=== PATIENT | male | born 1970 | race Caucasian/White ===

== ENCOUNTER 2025-10-25 16:44 | Inpatient (IN) | payer OTHER, SELFPAY ==
[2025-10-25] VITALS (14 sets, daily range): BP systolic 101–184; BP diastolic 70–123; BMI 28.2
[2025-10-25 14:32] LABS: Hematocrit 48.6 % (39.0-52.0); Hemoglobin 17.1 g/dL (13.0-18.0); Mean Corp Hgb Conc. 35.2 g/dL (33.0-37.0); Mean Corpuscular Volume 99.4 fL (80.0-94.0); Nucleated Red Blood Cells % 0 % (-); Platelet Count 256 10^3/uL (130-400); Red Cell Dist. Width 13.2 % (11.5-14.5)
[2025-10-25 14:41] LABS: INR 0.95; PT 12.8 Sec (11.4-14.6)
[2025-10-25 14:42] LABS: APTT 28.7 Sec (23.4-35.0)
[2025-10-25 14:47] LABS: ALT (SGPT) 22 U/L (0-50); AST (SGOT) 33 U/L (17-59); Albumin 4.9 g/dl (3.5-5.0); Alkaline Phosphatase 108 U/L (38-126); Blood Urea Nitrogen 21 mg/dl (9-20); Calcium 9.9 mg/dl (8.4-10.2); Carbon Dioxide 20 mmol/L (22-30); Chloride 102 mmol/L (98-107); Estimated Creatinine Clearance 75 ml/min; Glucose 108 mg/dl (70-99); Potassium 4.0 mmol/L (3.5-5.1); Sodium 136 mmol/L (135-145); Total Protein 8.1 g/dl (6.3-8.2); eGFR > 60.00
--- NOTE | 2025-10-25 14:49 | ED.GENMED ---
History of Present Illness
General
Chief Complaint: Back Pain
Time Seen by Provider: 10/25/25 14:22
History of Present Illness
History of Present Illness:
Patient is a 55-year-old man who does not see a doctor regularly, smokes a pack a day presenting to the emergency department back pain. Patient states he was sitting after selling snow when he developed left-sided back pain that went down his arm.
He was nauseous at home initially. Pain is been persistent for a few hours. No shortness of breath. No diaphoresis. No numbness tingling.
Phy Exam
Physical Exam
Physical Exam:
GENERAL: Appears unwell
HEENT: normocephalic, extraocular movements intact, moist oral mucosa
NECK: normal inspection
RESPIRATORY: no respiratory distress, clear to auscultation bilaterally
CARDIOVASCULAR: regular rate and rhythm, 2+ radial pulse
ABDOMEN/: soft, non-distended, non-tender to palpation, no rebound or guarding
EXTREMITIES: non-tender, no edema/swelling
NEUROLOGIC: awake and alert, moves all extremities
SKIN: warm
Course
Orders/Labs/Results
Orders:
Orders
10/25/25 14:02
ECG [Electrocardiogram (*1)] Urgent
Reason for Study: Chest Pain
EKG- Treatment ONCE
10/25/25 14:06
Electrocardiogram (*1) Urgent
Reason for Study: Hypertension, Benign
EKG- Treatment ONCE
10/25/25 14:21
Ondansetron Injectable [Zofran] 4 mg .ROUTE .STK-MED ONE
10/25/25 14:23
Complete Blood Count/With Diff Urgent
Comprehensive Metabolic Panel Urgent
PT/INR [Prothrombin Time] Urgent
Is patient on Coumadin/Warfarin?: No
Comment: [email or web address]
PTT Urgent
Troponin I Urgent
10/25/25 14:44
Fentanyl Citrate/Pf [Sublimaze] 100 mcg .ROUTE .STK-MED ONE
Heparin 10,000 units .ROUTE .STK-MED ONE
Heparin 1000 Units/500 ml [Heparin] 1,000 units in 500 ml .ROUTE .STK-MED
Heparin Sodium,Porcine/Ns/Pf [Heparin 2000 Units/1000 ml] 2,000 unit in 1,000 ml .ROUTE .STK-MED
Lidocaine HCl/Pf [Xylocaine-Mpf 1% Vial] 100 mg .ROUTE .STK-MED ONE
Midazolam HCl [Versed] 2 mg .ROUTE .STK-MED ONE
Nitroglycerin [Tridil] 1,500 mcg .ROUTE .STK-MED ONE
Verapamil Injectable [Isoptin/Verapamil Injection] 5 mg .ROUTE .STK-MED ONE
Abnormal Lab Results
10/25/25
14:23
WBC 13.0 H 10^3/uL
(4.8-10.8)
MCV 99.4 H fL
(80.0-94.0)
MCH 35.0 H pg
(27.0-31.0)
Absolute Neuts (auto) 9.0 H 10^3/uL
(1.4-6.5)
Absolute Monos (auto) 1.1 H 10^3/uL
(0.1-0.6)
Lymphocytes % 19.9 L %
(20.5-51.1)
Carbon Dioxide 20 L mmol/L
(22-30)
BUN 21 H mg/dl
(9-20)
Glucose 108 H mg/dl
(70-99)
10/25/25 14:23
10/25/25 14:23
Vital Signs
Initial and Last Documented VS:
Initial Vital Signs
Temp Pulse Resp BP Pulse Ox
97.3 F 90 18 184/119 100
10/25/25 14:05 10/25/25 14:05 10/25/25 14:05 10/25/25 14:05 10/25/25 14:05
Last Documented Vital Signs
Temp Pulse Resp BP Pulse Ox
97.3 F 103 19 165/116 98
10/25/25 14:05 10/25/25 14:17 10/25/25 14:17 10/25/25 14:15 10/25/25 14:49
MDM/Problems Addressed
Differential Diagnosis Includes:
Patient is a 55-year-old man who does not see a doctor but smokes a pack a day presenting to the emergency department with back pain. On arrival initial EKG per my interpretation consistent with STEMI. STEMI alert was called. Vital signs were
unremarkable. Aspirin Brilinta heparin given. Discussed with interventional cardiology who will take patient up to [facility]. Patient was transported to [facility] in stable condition.
*Pulse Oximetry
SaO2: 98
Oxygen Mode of Delivery: Room air
Patient hypoxic: no
*Critical Care Note
Total Time (30-74mins, 75-104mins- exclusive of procedures): 17
comment:
Critical care statement: A total of 17 minutes of critical care time was provided for this patient. This includes management of unstable vital signs, evaluation of the patient at bedside, reviewing the patient's pertinent medical records, ordering
and reviewing studies, arranging urgent treatment with development of a management plan, evaluating patient's response to treatment, frequent reassessment, and discussion with consultants. This time was separate from time utilized to perform the
aforementioned documented procedures.
ED Attending Note
-
Portions of this chart may have been created with voice recognition software.� Occasional wrong word or��sound alike� substitutions may have occurred due to the inherent limitations of voice recognition software.
Discharge Plan
Departure
Prescriptions:
No Action
amoxicillin-pot clavulanate 875-125 mg tablet
1 tab PO BID Qty: 14 0RF
Referrals:
NONE,* [Family Provider, Internal Medicine]
Interventions
Interventions:
*Risk Screen - Suicide Last Done: 10/25/25 14:06
*General Assessment Last Done: 10/25/25 14:37
*Neglect/Abuse Screening Last Done: 10/25/25 14:06
ED-Musculoskeletal Assessment Last Done: 10/25/25 14:14
Discharge Date and Time
Print Language: DUTCH
[2025-10-25 15:06] LABS: Troponin I 0.274 ng/ml
[2025-10-25 15:13] LABS: ACT-LR - POC 215 Seconds (116-155)
[2025-10-25 15:39] LABS: ACT-LR - POC 371 Seconds (116-155)
[2025-10-25 16:25] LABS: ACT-LR - POC 332 Seconds (116-155)
--- NOTE | 2025-10-25 16:45 | HPS.HSE ---
Family Physician
-
Family Physician: * NONE
Chief Complaint
-
CP
History of Present Illness
Mr. Pond is a 55-year-old gentleman with strong family history of premature coronary artery disease in multiple family members, active tobacco use, smoking 1 to 2 packs of cigarettes for the last 20 years, no known past medical history as he has
not seen a physician in about 14 years who presents today with sudden onset chest pressure radiating to his arm and back about an hour after shoveling snow. He tells me that he has had a couple similar episodes over the last 2 to 3 days usually at
rest but this was the only one that was more severe and did not subside which prompted him to come in. There were some nausea coming in. EKG on presentation showed inferolateral ST elevation MD for which the heart catheterization team was
emergently activated. He was given 325 mg of aspirin, 5000 units of unfractionated IV heparin and 180 mg of Brilinta in the emergency department. After detailed informed consent reviewing the risk and benefits he was brought up to the heart
catheterization lab.
Medical History
Past Medical History
Past Medical History: Reports Other (No known)
Additional Past Medical History:
no known history but hasnt seen PCP in 14yrs
Past Surgical History: Reports None
Social History
Tobacco: Smoker
Alcohol: None
Drug: None
Personal:
Living: With Family
Employment: Employed
Family History
Family History: Early CAD
Allergies / Home Medications
Allergies reflects when Allergies were last updated in [employer].
Home Medications with original date entered in [employer]
Allergy/Medication List:
NKDA
No medications at home
Review of Systems
-
A 12 point ROS was completed and negative except as noted: Yes
Physical Exam
Vital Signs
Vital Signs
Temp Pulse Resp BP Pulse Ox
97.3 F 108 11 168/123 98
10/25/25 14:05 10/25/25 14:45 10/25/25 14:45 10/25/25 14:45 10/25/25 14:49
Physical Exam
General: Well Developed, Appears in Distress and Morbidly Obese
HEENT: Moist mucous membranes
Respiratory: Rales and Decreased Breath Sounds
Cardiac: S1/S2, Tachycardia and JVD; No Murmur, Rub or Gallop
Breast: Deferred by me
GI: Soft, Non Tender, Non Distended and Normal Bowel Sounds
Musculoskeletal: No Clubbing, No Cyanosis and No Edema
Skin: Warm and Dry
Neuro: AO x 3
Psych: Anxious
Laboratory Results
-
10/25/25 14:23
10/25/25 14:23
Laboratory Results
PT 12.8 Sec (11.4-14.6) 10/25/25 14:23
INR 0.95 10/25/25 14:23
APTT 28.7 Sec (23.4-35.0) 10/25/25 14:23
Total Bilirubin 0.9 mg/dl (0.2-1.3) 10/25/25 14:23
AST 33 U/L (17-59) 10/25/25 14:23
ALT 22 U/L (0-50) 10/25/25 14:23
Alkaline Phosphatase 108 U/L (38-126) 10/25/25 14:23
Troponin I 0.274 ng/ml H* 10/25/25 14:23
Data Reviewed
-
Diagnostic Radiology: Image Personally Visualized and interpreted
Medical Tests (Nuc Med, Echo, EKG etc): Image Personally Visualized and interpreted
Lab Data: Labs Reviewed by me
Old Records: Reviewed
Impression/Plan
-
IMPRESSION: Mr. Pond is a 55-year-old gentleman with strong family history of premature coronary artery disease in multiple family members, active tobacco use, smoking 1 to 2 packs of cigarettes for the last 20 years, no known past medical history
as he has not seen a physician in about 14 years who presents today with sudden onset chest pressure radiating to his arm and back about an hour after shoveling snow. He tells me that he has had a couple similar episodes over the last 2 to 3 days
usually at rest but this was the only one that was more severe and did not subside which prompted him to come in. There were some nausea coming in. EKG on presentation showed inferolateral ST elevation MD for which the heart catheterization team
was emergently activated. He was given 325 mg of aspirin, 5000 units of unfractionated IV heparin and 180 mg of Brilinta in the emergency department. After detailed informed consent reviewing the risk and benefits he was brought up to the heart
catheterization lab.
PLAN:
PCP: None
CArds: None
Impression:
Inferolateral ST elevation MD, status post 4 overlapping Medtronic Deion drug-eluting stents to proximal RCA 100% acute occlusion with RICHY 0 flow (2.75 x 18, 2.75 x 15, 2.75 x 8 and 2.5 x 12 m stents)
Transient bradycardia/asystole during the procedure requiring very brief CPR
Active tobacco abuse, smoking 1 to 2 packs of cigarettes per day for the last 20 years
Significant family history of premature coronary artery disease in multiple family members
No other known past medical history, has not seen PCP in 14 years
Morbidly obese
Recommendations:
1. Uninterrupted dual antiplatelet therapy with daily baby aspirin and Brilinta, low-dose beta-blade with close monitoring on telemetry given frequent PVCs and NSVT, high intensity statin.
2. Full echocardiogram to assess biventricular function and rule out any significant valvular abnormalities.
3. Assessment of secondary cardiovascular risk factors with aggressive management.
4. Very strongly emphasized importance of complete smoking cessation.
5. Emphasize importance of a high-fiber Mediterranean type diet and outpatient cardiac rehab.
Discussed all of the above with patient and his .
Marie Cruz MD, FAC, [facility]
--- NOTE | 2025-10-25 16:49 | ITS.CL.CATH ---
Principal Scientist - Catheterization
Cardiac Catheterization
Procedure Report:
LEFT HEART CATHETERIZATION
Date of Procedure: October 25, 2024
Referring: [place] emergency department
PROCEDURES:
1. Left heart catheterization, coronary angiogram.
2. Moderate sedation.
3. Successful percutaneous coronary artery intervention of 100% proximal left circumflex occlusion (RICHY 0 flow, Lesion type C) with 4 overlapping Medtronic Deion drug-eluting stents (2.75 x 18, 2.75 x 15, 2.75 x 8 and 2.5 x 12 mm), postdilated
using IVUS guidance with 2.75 mm NC balloon at high pressures distally and a 3.5 mm NC balloon at high pressures proximally, with an excellent angiographic and IVUS based result.
4. Intravascular ultrasound (IVUS)
INDICATION: Mr. Pond is a 55-year-old gentleman with strong family history of premature coronary artery disease in multiple family members, active tobacco use, smoking 1 to 2 packs of cigarettes for the last 20 years, no known past medical history
as he has not seen a physician in about 14 years who presents today with sudden onset chest pressure radiating to his arm and back about an hour after shoveling snow. He tells me that he has had a couple similar episodes over the last 2 to 3 days
usually at rest but this was the only one that was more severe and did not subside which prompted him to come in. There were some nausea coming in. EKG on presentation showed inferolateral ST elevation OK for which the heart catheterization team
was emergently activated. He was given 325 mg of aspirin, 5000 units of unfractionated IV heparin and 180 mg of Brilinta in the emergency department. After detailed informed consent reviewing the risk and benefits he was brought up to the heart
catheterization lab.
ACCESS: Right radial artery, 6Fr. sheath, under US guidance.
HEMODYNAMICS : (mmHg)
AO (s/d) : 155/107
LVEDP : 35
No significant gradient across the aortic valve to suggest aortic stenosis.
CORONARY FINDINGS
Dominance: Right
Left Main Trunk (LMT): Large caliber vessel that gives rise to the LAD and LCx branches and is free of angiographic disease.
Left Anterior Descending Artery (LAD): Large caliber vessel that gives off 2 major diagonal branches as it courses along the anterior inter-ventricular groove before wrapping around the cardiac apex. There is a 30 to 40% stenosis just distal to
the major second diagonal branch. Otherwise there is mild diffuse atherosclerotic plaque.
Left Circumflex Artery (LCx): Large caliber dominant vessel that gives off 2 major obtuse marginal (OM) branches as it courses along the atrio-ventricular (AV) groove. Proximal portion of the left circumflex is 100% occluded which is thought to be
the culprit of presenting OK.
Right Coronary Artery (RCA): Small caliber, nondominant right coronary artery with 80% stenosis in the proximal portion, RICHY-3 flow.
CORONARY INTERVENTION: We decided to proceed with percutaneous intervention to the 100% proximal left circumflex occlusion which was thought to be the culprit lesion. A left coronary artery was selectively engaged using a 6 Ethiopian EBU 3.5 guide
catheter. Additional heparin was given throughout the case to maintain a therapeutic ACT. A 180 cm 0.014 run-through coronary wire was carefully navigated into the distal left circumflex. The lesion was predilated using a 2.5 x 12 mm
semicompliant balloon with full expansion and yazdanism of RICHY I flow into the distal vessel. Diffuse disease was noted in the mid left circumflex spanning across both major obtuse marginal branches. Soon after yazdanism of RICHY I flow into
the distal vessel patient had sudden onset bradycardia and then was in asystole. For the bradycardia he had received 1 mg of atropine and very transient chest compressions were performed. His rhythm soon returned in AIVR. We proceeded with
stenting the lesion with a 2.75 x 18 mm Medtronic Deion frontier drug-eluting stent which was postdilated using a 3.0 mm NC balloon at high pressures distally and a 3.5 mm NC balloon at high pressures proximally based on IVUS guidance. We noted
obstructive disease distal to the stent given the diffuse nature of underlying atherosclerosis. We needed 3 further overlapping stents to cover this entire area which included a 2.75 x 15 mm, 2.75 x 8 mm and a 2.5 x 12 mm Medtronic Deion frontier
drug-eluting stents. These were further postdilated using a 2.75 mm NC balloon at high pressures with an excellent angiographic and IVUS based result. Patient had already received 180 mg of Brilinta in the emergency room. He tolerated the
procedure well with no acute complications and was chest pain-free at the end of the case.
SEDATION: 67 minutes of procedural sedation was utilized. IV Midazolam and IV Fentanyl were administered. An independent medical case manager was present to assist with and help manage the patient's level of consciousness and physiologic status.
RADIATION SUMMARY: Fluoro Time (min): 15.4, Dose (mGy): 1257, DAP (Gy.cm2) : 48.5
Closure Device: There were no immediate intra-procedural complications. The sheath was pulled in the photo lab manager and a vascular-band applied to the right wrist for radial artery hemostasis using the patent hemostasis technique.
CONCLUSIONS
1. Successful percutaneous coronary artery intervention of 100% proximal left circumflex occlusion (RICHY 0 flow, Lesion type C) with 4 overlapping Medtronic Bronte drug-eluting stents (2.75 x 18, 2.75 x 15, 2.75 x 8 and 2.5 x 12 mm), postdilated using
IVUS guidance with 2.75 mm NC balloon at high pressures distally and a 3.5 mm NC balloon at high pressures proximally, with an excellent angiographic and IVUS based result.
2. LVEDP is 35mmHG
RECOMMENDATIONS
1. Wean radial band per protocol. Monitor right hand perfusion and for bleeding from the radial site following removal of the vascular-band following trans-radial access.
2. Continue aggressive medical therapy and risk factor modification for secondary CAD prevention.
3. Continue ASA 81 mg daily for life.
4. Continue Brilinta for at least 12 months of uninterrupted dual anti-platelet therapy given drug-eluting stent (SHANIKA) implantation to mitigate the risk of stent thrombosis. This is not to be stopped for any reason without the guidance of a
salesforce business analyst.
5. Hydrate with normal saline to mitigate the risk of contrast-induced acute kidney injury.
6. Referral for outpatient cardiac rehab.
Marie Cruz MD, FACC, [facility]
[2025-10-25] MEDS: CRESTOR 40 MG PO (17:54)
[2025-10-25] MEDS: TOPROL XL 25 MG PO (17:54)
[2025-10-25 18:43] LABS: Magnesium 2.0 mg/dl (1.6-2.3)
--- NOTE | 2025-10-25 18:58 | PTCARENOTE ---
~1700: Received report from CCL, patient brought to room via bed in stable condition. EKG obtained. R radial TR band in place, site CDI with no oozing or hematoma noted. Pt AOx4, NSR 70s-80s, SBP 110s-120s, RA satting 98%. Pt having frequent PVCs as
well as brief episodes of ventricular bigem and 6 beat run NSVT, Dr. Serrato made aware. Pt denies pain/ CP at this time. +1 pulses, no edema noted. at bedside. Post procedure fluids infusing by gravity. Pt voided in urinal, I/Os charted.
Education given on R wrist restrictions, patient verbalized understanding. Admission charting completed. Patient oriented to room and call jaquez system. All needs met at this time, call jaquez within reach.
~[id number]: Patient continued to have frequent ectopy including a 9 beat run NSVT, asymptomatic, however on occassion with ectopy will feel when his HR shoots up suddenly. Dr. serrato made aware. Scheduled toprol given. Verbal order received to also
check mag levels with upcoming troponin. Bloodwork drawn and sent to lab, results pending. Air started to be removed from TR band around 1830 per protocol. remains at bedside. All needs met at this time, call jaquez within reach. Handoff report
given to nightshift RN.
[2025-10-25 19:09] LABS: Troponin I 122.000 ng/ml
[2025-10-25] MEDS: HEPARIN 5000 UNITS SC (19:55)
[2025-10-25] MEDS: BRILINTA 90 MG PO (19:55)
--- NOTE | 2025-10-25 20:16 | PTCARENOTE ---
Rec'd pt at change of shift. Pt AAO*3, VSS, and SR w PVC's on tele monitor. PT with R radial site CDI, pt agreed to activity restrictions. Tele monitor showing PVC triplets and frequent PVC's. Supplemental 2L of oxygen applied for comfort.
Business Services Assistant and interventionalist ham boner notified via tiger text. Rec'd order for magnesium add on in morning labs. Pt now resting with call jaquez in reach. See MAR and flowchart for full pt care and assessment.
Troponin resulted at 122 with 1830 lab draw increased from .274 at 14:30. Dr Cruz notified via tigertext and aware.
[2025-10-26] VITALS (15 sets, daily range): BP systolic 93–116; BP diastolic 67–86; BMI 27.0
--- NOTE | 2025-10-26 01:25 | PTCARENOTE ---
Pt with 46 beat run of vt on tele monitor at 22:30. Pt denies any chest pain or palpitations. BP 101/70 and 99% on 2L of oxygen at this time. Dr Sanchez notified. No new orders at this time. Pt now resting with call jaquez in reach. Plan of care
ongoing.
[2025-10-26 06:03] LABS: Hematocrit 46.1 % (39.0-52.0); Hemoglobin 16.5 g/dL (13.0-18.0); Mean Corp Hgb Conc. 35.8 g/dL (33.0-37.0); Mean Corpuscular Volume 100.0 fL (80.0-94.0); Nucleated Red Blood Cells % 0 % (-); Platelet Count 241 10^3/uL (130-400); Red Cell Dist. Width 13.2 % (11.5-14.5)
[2025-10-26 06:27] LABS: Blood Urea Nitrogen 23 mg/dl (9-20); Calcium 9.2 mg/dl (8.4-10.2); Carbon Dioxide 22 mmol/L (22-30); Chloride 105 mmol/L (98-107); Estimated Creatinine Clearance 108 ml/min; Glucose 113 mg/dl (70-99); HDL Cholesterol 39 mg/dl; LDL Cholesterol, Calculated 146 mg/dl; Magnesium 2.1 mg/dl (1.6-2.3); Potassium 4.3 mmol/L (3.5-5.1); Sodium 134 mmol/L (135-145); Very Low Density Lipoprotein 34 mg/dl (0-30); eGFR > 60.00
[2025-10-26 06:59] LABS: Troponin I 188.000 ng/ml
[2025-10-26] MEDS: BRILINTA 90 MG PO ×2 (08:00→19:43)
[2025-10-26] MEDS: TOPROL XL 25 MG PO ×2 (08:00→10:13)
[2025-10-26] MEDS: HEPARIN 5000 UNITS SC ×2 (08:00→19:43)
[2025-10-26 08:01] LABS: ACT-LR - POC 305 Seconds (116-155)
[2025-10-26 08:01] LABS: ACT-LR - POC 285 Seconds (116-155)
[2025-10-26] MEDS: LOW STRENGTH ASPIRIN 81 MG PO (08:28)
--- NOTE | 2025-10-26 08:32 | CARDSERVLU ---
Echocardiogram with Lumason completed after protocol screening completed. Allergies verified.
Patent IV site: L AC
IV site flushed with 0.9% NaCl pre and post administration.
Diluted bolus method utilized to enhance visualization of ventricular goodman.
Total volume given: __1.5__ mL
Patient tolerated all procedures well without complications.
--- NOTE | 2025-10-26 08:58 | PTCARENOTE ---
Patient received at change of shift resting in the bed. Reports feeling tired and not sleeping well last night. Denies chest pain or pressure. Endorses nausea but is not presently vomiting. SR on telemetry. SaO2 on 2L NC 97-98%. Right radial cath
site with gauze and tegaderm C/D/I, radial pulse palpable, no ecchymosis, no evidence of hematoma. Discussed purpose of medications with patient including aspirin, Brilinta, SQ heparin, and metoprolol, patient verbalized understanding. ECHO to be
done at bedside this morning. Plan of care discussed. Call jaquez within reach. Care ongoing.
--- NOTE | 2025-10-26 09:28 | W.PN.CARDCBS ---
Addendum entered and electronically signed by Marie Cruz MD 10/26/25 14:27:
I saw and examined the patient.
The Compounding Scaler's note was reviewed and I agree with the note.
Comment: Mr. Pond is doing okay this morning. He still reports orthopnea getting short of breath especially with laying flat other times it is random while he is in bed. Denies any further chest pain. He has been out of bed ambulating to the
bathroom. No lightheadedness/dizziness, no palpitations.
Vital signs and lab work reviewed. Creatinine has improved to 0.9. On exam patient is well-appearing, no acute distress, awake, alert and oriented x 3, elevated JVP, no carotid bruit, normal carotid upstrokes, slightly decreased breath sounds at
bilateral bases, regular rate, normal S1 and S2, no murmurs, rubs or gallops, right radial access site with dressing in place which is clean, dry and intact without evidence of hematoma or bruit, warm extremities without significant edema.
Telemetry with frequent PVCs, NSVT, up to 30 beats. Other times he has AIVR as well.
Recommendations:
1. For inferolateral ST elevation AK patient is status post 4 overlapping drug-eluting stents to 100% proximally occluded left circumflex and will be on an adopted daily baby aspirin and Brilinta, high intensity statin and beta-blade. We did
discuss that if the shortness of breath does not get improved and is happening not typically as it would for heart failure, we would consider switching from Brilinta to prasugrel. We will have case management weigh in in regards to cost of
prasugrel. For now we will continue Brilinta. LDL goal of less than 55 to be checked as an outpatient.
2. For acute decompensated systolic and diastolic heart failure with reduced ejection fraction secondary to ischemic cardiomyopathy, plan for additional IV diuresis with close monitoring of renal function, electrolytes. Plan to keep K and mag over
4 and 2, respectively especially given ventricular ectopy.
3. Frequent ventricular ectopy and nonsustained VT in the setting of jeremiah-AK, we increased the beta-blade after giving additional dose this morning. Since then his ectopy has improved somewhat. Hold off on any antiarrhythmics for now.
4. For ischemic cardiomyopathy, will work on optimizing GDMT. Given blood pressures are borderline, for now we will hold off on adding either Aldactone or losartan but will hopefully be able to add this tomorrow. We will also look into an SGLT2
inhibitor through case management in regards to cost to add on prior discharge
5. Discussed importance of a heart healthy cardiac diet that is high in fiber and low in carbs to optimize long-term cardiovascular risk and pursuing outpatient cardiac rehab.
6. Very strongly emphasized importance of complete smoking cessation.
7. Echocardiogram reviewed by myself showing mild LV dysfunction with wall motions in the lateral, inferolateral and anterolateral goodman with EF estimated at 40 to 45%. No significant valvular abnormalities.
Discussed with patient, at bedside as well as nursing.
Marie Cruz MD, [facility], [facility]
Total time spent: 52 minutes
Original Note:
Today's Communication / Plan
-
Echo today
cardiac rehab
increase metoprolol to 50mg/daily
monitor on tele another 24-48h
Impression / Plan
-
PCP: None
CDY: Marie Cruz MD
55 y/o, strong FH premature CAD in multiple family members, active tobacco abuse- 1-2ppd x20y- no known PMH, does not see a PCP.
Developed acute onset SSCP while shoveling snow yesterday, radiating to LUE/back, persistent and unrelieved with rest, mild nausea but no other associated symptoms. He endorses intermittent CP over the last 2-3 days prior to admission, some at rest,
self limiting. He presented to ER where EKG showed inferolateral STEMI. Loaded with aspirin, ticagrelor and heparin and brought emergently to analyst microbiology lab.
LHC- 100% prox LCx occlusion, s/p 4 overlapping SHANIKA
residual 80% prox RCA disease- small caliber, non dominant
LVEDP 35.
Transient bradycardia/asystole during the procedure requiring very brief CPR
IMPRESSION:
Acute inferolateral STEMI, this is a threat to life
s/p prox LCx PCI w/4 overlapping SHANIKA, 10/25/25
Residual 80% prox RCA disease- medical management
HLD- new diagnosis
Active tobacco abuse, 1-2PPD x20y
Strong FH premature CAD
Obesity
PLAN:
Tele- NSR w/frequent PVC, NSVT 3bt- up to 30 seconds- asymptomatic
radial cath site stable
Peak troponin 258
echocardiogram today
DAPT w/asa, ticagrelor- affordable and rx sent
Lipid profile noted- high intensity statin therapy w/atorvastatin 80mg/d
New start metoprolol 25mg daily- increase to 50mg daily and monitor NSVT
Soft BP and holding EMILY/ARB as of yet- will continue to monitor
mildly elevated glucose levels- HgbA1C 5.4%
Tobacco cessation is a must- discussed w/pt and he is in agreement- will provide nicoderm patches
Weight loss encouraged
Cardiac rehab consult today
followup at [facility] as scheduled
Recommended he find a wringer operator for medical management and followup
Monitor on tele another 24 hours- oob to chair, amb in room only
Progress Note - Vehicle And Equipment Cleaner
Subjective
Date of Service: October 26, 2025
Denies cp/palps/dyspnea/lightheadedness
oob ambulating
cath site without pain
Objective
Labs:
10/26/25 05:53
10/26/25 05:53
Labs
Hgb 16.5 g/dL (13.0-18.0) 10/26/25 05:53
Hct 46.1 % (39.0-52.0) 10/26/25 05:53
Plt Count 241 10^3/uL (130-400) 10/26/25 05:53
PT 12.8 Sec (11.4-14.6) 10/25/25 14:23
INR 0.95 10/25/25 14:23
APTT 28.7 Sec (23.4-35.0) 10/25/25 14:23
Sodium 134 mmol/L (135-145) L 10/26/25 05:53
Potassium 4.3 mmol/L (3.5-5.1) 10/26/25 05:53
BUN 23 mg/dl (9-20) H 10/26/25 05:53
Creatinine 0.9 mg/dL (0.7-1.3) 10/26/25 05:53
Glucose 113 mg/dl (70-99) H 10/26/25 05:53
Troponins
10/25/25 10/25/25 10/25/25
14:23 18:11 23:15
Troponin I 0.274 H* 122.000 H* D Cancelled
10/26/25 10/26/25 10/26/25
00:38 01:00 05:53
Troponin I 258.000 H* D Cancelled 188.000 H* D
Vital Signs and I&O:
Vital Signs
Temp Pulse Resp BP Pulse Ox
98.0 F 64 17 104/76 97
10/26/25 07:28 10/26/25 09:07 10/26/25 07:28 10/26/25 09:07 10/26/25 08:00
Vital Signs
Temp Pulse Resp BP Pulse Ox
98.0 F 64 17 104/76 97
10/26/25 07:28 10/26/25 09:07 10/26/25 07:28 10/26/25 09:07 10/26/25 08:00
Intake & Output
10/24/25 10/25/25 10/26/25 10/27/25
06:59 06:59 06:59 06:59
Intake Total 240 / 240
Output Total 900 / 900 50 / 50
Balance -660 / -660 -50 / -50
Physical Exam
Physical Exam
AAOx3, MAEE 03/16
RRR S1 S2 no murmurs
CTA bilat, non labored
soft abd, + bs
right radial cath site without ht/bleeding, non tender, palpable pulses
bilat extremities w/palpable distal pulses, no edema
[2025-10-26 09:29] LABS: Glycohemoglobin (HgbA1c) 5.4 % (4.0-5.9)
--- NOTE | 2025-10-26 09:48 | PTCARENOTE ---
At approximately 0905 patient had a 30 second run of ventricular tachycardia. The patient was asymptomatic, resting in the bed. BP 104/76 (86), SaO2 on 2L NC 99%. The patient denies chest pain. Notified [facility] liquefaction supervisor scanning coordinator Dr. Hicks. No further
orders or interventions placed at this time. Care ongoing.
--- NOTE | 2025-10-26 10:30 | CM ---
Addendum entered by Gladis Dean 10/27/25 08:25:
Asked to check co -pay for Prasugrel, Farxiga and Jardiance. The co-pay for Prasugrel is $10.00 a month. Farxiga and Jardiance will need a prior auth. and step therapy. Prior auth. can be obtained by Cover my meds, Phone number is [phone] and
fax number is [phone].
Original Note:
Reviewed chart. Met with Mr. Pond to review discharge plans. He states prior to admission he resides with his spouse in a two story home with two steps to enter. He states he has a full flight of steps to get to bedroom/full bathroom. He
states he has a powder room on the first floor. He states prior to admission he was independent with ambulation and adls. He states he does not have any DME in the home. Telephone call to [facility], but the to check on co-pay for Brilinta 90 mg po
bid. Brilinta the brand is not covered, but the generic Ticagrelor 90 mg po bidis covered, His co-pay is $10.00 a month. Reviewed the co- pay with him. He is agreeable to the co-pay. Telephone call to the [facility] to see if they have Ticagrelor
90 mg po is in stock. [facility] has it in stock. Reviewed with BEAD WIRE INSULATOR and she will need send the script. Medical work-up in progress. The discharge plan is to return home with his spouse when medically stable.
[2025-10-26] MEDS: LASIX 40 MG IV (13:59)
[2025-10-26] MEDS: LIPITOR 80 MG PO (17:23)
--- NOTE | 2025-10-27 00:54 | PTCARENOTE ---
Received patient at change of shift. SR on the monitor, HR in the 60s. R radial dressing CDI. No complaints from pt at this time, call jaquez within reach.
[2025-10-27 04:00] VITALS: BP 100/74
[2025-10-27 04:15] VITALS: BMI 26.9
[2025-10-27 04:30] LABS: Hematocrit 44.9 % (39.0-52.0); Hemoglobin 16.0 g/dL (13.0-18.0); Mean Corp Hgb Conc. 35.6 g/dL (33.0-37.0); Mean Corpuscular Volume 99.3 fL (80.0-94.0); Platelet Count 221 10^3/uL (130-400); Red Cell Dist. Width 13.2 % (11.5-14.5)
[2025-10-27 04:58] LABS: Blood Urea Nitrogen 28 mg/dl (9-20); Calcium 9.3 mg/dl (8.4-10.2); Carbon Dioxide 26 mmol/L (22-30); Chloride 102 mmol/L (98-107); Estimated Creatinine Clearance 108 ml/min; Glucose 102 mg/dl (70-99); Magnesium 2.1 mg/dl (1.6-2.3); Potassium 4.2 mmol/L (3.5-5.1); Sodium 133 mmol/L (135-145); eGFR > 60.00
--- NOTE | 2025-10-27 08:34 | W.PN.CARDCBS ---
Addendum entered and electronically signed by Marie Cruz MD 10/27/25 23:14:
I saw and examined the patient.
The Roll Skinner's note was reviewed and I agree with the note.
Comment: He still reports orthopnea getting short of breath especially with laying flat other times it is random while he is in bed. Denies any further chest pain. He has been out of bed ambulating the halls feeling tired and dyspneic towards end
of the walk. No lightheadedness/dizziness, no palpitations.
Vital signs and lab work reviewed. Creatinine stable, not really net negative yesterday despite IV lasix. BP borderline. On exam patient is well-appearing, no acute distress, awake, alert and oriented x 3, elevated JVP, no carotid bruit, normal
carotid upstrokes, slightly decreased breath sounds at bilateral bases, rales greater on left than right, regular rate, normal S1 and S2, no murmurs, rubs or gallops, right radial access site with dressing in place which is clean, dry and intact
without evidence of hematoma or bruit, warm extremities without significant edema.
Telemetry with improved ventricular ectopy. short runs of NSVT.
Recommendations:
1. For inferolateral ST elevation ND patient is status post 4 overlapping drug-eluting stents to 100% proximally occluded left circumflex and will be on DAPT with daily baby aspirin. Given random SOB which is probably due to HFrEF however some
atypical features makes me wonder if side effect due to brilinta so switched to prasugrel this AM with 60mg load, then 10mg daily, high intensity statin and beta-blade. Vent ectopy better on BB LDL goal of less than 55 to be checked as an
outpatient.
2. For acute decompensated systolic and diastolic heart failure with reduced ejection fraction secondary to ischemic cardiomyopathy, plan for additional IV diuresis with close monitoring of renal function, electrolytes. Plan to keep K and mag over
4 and 2. Incentive spirometer. Echocardiogram reviewed by myself showing mild LV dysfunction with wall motions in the lateral, inferolateral and anterolateral goodman with EF estimated at 40 to 45%. No significant valvular abnormalities.
3. Frequent ventricular ectopy and nonsustained VT in the setting of jeremiah-ND, we increased the beta-blade yesterday with improvement in ectopy.
4. For ischemic cardiomyopathy, will work on optimizing GDMT. Added low dose spironolactone, hold off on ARB for now given borderline BPs. SGLTi as outpt given apporoval through insurance.
5. Discussed importance of a heart healthy cardiac diet that is high in fiber and low in carbs to optimize long-term cardiovascular risk and pursuing outpatient cardiac rehab.
6. Very strongly emphasized importance of complete smoking cessation.
Discussed with patient, at bedside as well as nursing.
Marie Cruz MD, [facility], [facility]
Total time spent: 52 minutes
Original Note:
Today's Communication / Plan
-
Stop ticagrelor and start prasugrel 60mg now/10mg daily
start spironolactone
ambulate in halls
monitor on tele another 24h
Impression / Plan
-
PCP: None
CDY: Marie Cruz MD
55 y/o, strong FH premature CAD in multiple family members, active tobacco abuse- 1-2ppd x20y- no known PMH, does not see a PCP.
Developed acute onset SSCP while shoveling snow yesterday, radiating to LUE/back, persistent and unrelieved with rest, mild nausea but no other associated symptoms. He endorses intermittent CP over the last 2-3 days prior to admission, some at rest,
self limiting. He presented to ER where EKG showed inferolateral STEMI. Loaded with aspirin, ticagrelor and heparin and brought emergently to record label internship.
LHC- 100% prox LCx occlusion, s/p 4 overlapping SHANIKA
residual 80% prox RCA disease- small caliber, non dominant
LVEDP 35.
Transient bradycardia/asystole during the procedure requiring very brief CPR
Echo- nml LV Size, mildly decreased LVSF, EF 40-45%
lateral, anterolateral and inferolateral HK, mild AR, mild MR, no effusion
IMPRESSION:
Acute inferolateral STEMI, this is a threat to life
s/p prox LCx PCI w/4 overlapping SHANIKA, 10/25/25
Residual 80% prox RCA disease- medical management
New Cardiomyopathy
HLD- new diagnosis
Active tobacco abuse, 1-2PPD x20y
Strong FH premature CAD
Obesity
PLAN:
Tele- NSR w/3-7bt NSVT noted but much quieter in the last 24 hours
radial cath site stable
Peak troponin 258
echocardiogram noted- new cardiomyopathy with decreased EF 40-45%
mild orthopnea noted- lasix 40mg IV given yesterday with no real change- possible ticagrelor side effect- will change to prasugrel with 60mg load this morning and start 10mg/daily
Difficult to maximize GDMT- Soft BP- low 100s- and holding EMILY/ARB as of yet, would start spironolactone 12.5mg daily
SGLT2 requires prior auth and will start that at outpt followup
DAPT w/asa, prasugrel- pt and understand importance of uninterrupted DAPT for 1 year post stenting
Lipid profile noted- high intensity statin therapy w/atorvastatin 80mg/d
Tolerating metoprolol 50mg/daily with less PVC/VT as before
Tobacco cessation is a must- discussed w/pt and he is in agreement- will provide nicoderm patches
Weight loss encouraged
Cardiac rehab
followup at [facility] as scheduled
plan for outpt echo in 2-3 months, re eval cardiomyopathy
Recommended he find a tire spotter for medical management and followup
Ambulate halls today
Will monitor another 24 hours on tele
Progress Note - Legislative Analyst
Subjective
Date of Service: October 27, 2025
still with brief episodes orthopnea/'catching my breath', but no SOB/PEREZ
brief fleeting chest discomfort earlier today but has had no other chest pains since admission
cath site without pain
oob ambulating in room
Objective
Labs:
10/27/25 04:12
10/27/25 04:12
Labs
Hgb 16.0 g/dL (13.0-18.0) 10/27/25 04:12
Hct 44.9 % (39.0-52.0) 10/27/25 04:12
Plt Count 221 10^3/uL (130-400) 10/27/25 04:12
PT 12.8 Sec (11.4-14.6) 10/25/25 14:23
INR 0.95 10/25/25 14:23
APTT 28.7 Sec (23.4-35.0) 10/25/25 14:23
Sodium 133 mmol/L (135-145) L 10/27/25 04:12
Potassium 4.2 mmol/L (3.5-5.1) 10/27/25 04:12
BUN 28 mg/dl (9-20) H 10/27/25 04:12
Creatinine 0.9 mg/dL (0.7-1.3) 10/27/25 04:12
Glucose 102 mg/dl (70-99) H 10/27/25 04:12
Troponins
10/25/25 10/25/25 10/25/25
14:23 18:11 23:15
Troponin I 0.274 H* 122.000 H* D Cancelled
10/26/25 10/26/25 10/26/25
00:38 01:00 05:53
Troponin I 258.000 H* D Cancelled 188.000 H* D
Vital Signs and I&O:
Vital Signs
Temp Pulse Resp BP Pulse Ox
97.7 F 67 22 100/74 99
10/27/25 04:00 10/27/25 06:00 10/27/25 04:00 10/27/25 04:00 10/27/25 04:00
Vital Signs
Temp Pulse Resp BP Pulse Ox
97.7 F 67 22 100/74 99
10/27/25 04:00 10/27/25 06:00 10/27/25 04:00 10/27/25 04:00 10/27/25 04:00
Intake & Output
10/25/25 10/26/25 10/27/25 10/28/25
06:59 06:59 06:59 06:59
Intake Total 240 / 240 480 / 480
Output Total 900 / 900 300 / 300
Balance -660 / -660 180 / 180
Physical Exam
Physical Exam
AAOx3, MAEE 5/5
RRR S1 S2 no murmurs
CTA bilat, non labored
soft abd, + bs
right radial cath site GORE INSERTER, no ht/bleeding, non tender, palpable distal pulse
bilat extremities w/palpable distal pulses, no edema
[2025-10-27 08:50] VITALS: BP 97/74
[2025-10-27] MEDS: HEPARIN 5000 UNITS SC ×2 (09:03→19:44)
[2025-10-27] MEDS: TOPROL XL 50 MG PO (09:03)
[2025-10-27] MEDS: LOW STRENGTH ASPIRIN 81 MG PO (09:03)
--- NOTE | 2025-10-27 09:23 | CM ---
Reviewed chart. Met with and Mrs. Pond to review discharge plans. He states he is feeling well and maybe able to go home soon. Telephone call to [facility] to check if they have Prasugrel 10 mg in stock. [facility] states they have it in
stock. Prior to admission he resides with his spouse in a two story home with two steps to enter. He has a full flight of steps to get to bedroom/full bathroom. He has a powder room on the first floor. Prior to admission he was independent
with ambulation and adls. He does not have any DME in the home. Medical work-up in progress. The discharge plan is to return home with his spouse when medically stable.
[2025-10-27] MEDS: EFFIENT 60 MG PO (09:56)
[2025-10-27] MEDS: ALDACTONE 12.5 MG PO (09:57)
[2025-10-27 11:21] VITALS: BP 105/72
--- NOTE | 2025-10-27 11:50 | PTCARENOTE ---
received patient this am, patient feels tired today, ambulated in hallway and noticed how weak he feels. monitor shows NSR, VSS. right radial site KENTON, distal pulse palpable. patient c/o being SOB, D/C'd Brilinta and loaded patient with Effient as
ordered. discussed plan of care for today with patient and .
[2025-10-27] MEDS: LASIX 40 MG IV (14:17)
[2025-10-27] MEDS: FLUSH (NSS) 1 FLUSH IV (14:18)
[2025-10-27 15:27] VITALS: BP 104/76
[2025-10-27] MEDS: LIPITOR 80 MG PO (17:44)
--- NOTE | 2025-10-27 18:07 | PTCARENOTE ---
ambulated in [facility]. [facility].
[2025-10-27 19:11] VITALS: BP 110/68
--- NOTE | 2025-10-27 20:48 | PTCARENOTE ---
Received patient at change of shift. SR on the monitor, HR in the 70s. R radial KENTON, ecchymotic. No complaints from pt at this time, call jaquez within reach.
[2025-10-27 22:08] VITALS: BP 98/75
[2025-10-28 03:37] VITALS: BP 96/63
[2025-10-28 03:49] VITALS: BMI 26.9
[2025-10-28 04:22] LABS: Hematocrit 45.1 % (39.0-52.0); Hemoglobin 16.4 g/dL (13.0-18.0); Mean Corp Hgb Conc. 36.4 g/dL (33.0-37.0); Mean Corpuscular Volume 99.6 fL (80.0-94.0); Platelet Count 224 10^3/uL (130-400); Red Cell Dist. Width 13.0 % (11.5-14.5)
[2025-10-28 04:49] LABS: Blood Urea Nitrogen 26 mg/dl (9-20); Calcium 8.9 mg/dl (8.4-10.2); Carbon Dioxide 26 mmol/L (22-30); Chloride 100 mmol/L (98-107); Estimated Creatinine Clearance 97 ml/min; Glucose 104 mg/dl (70-99); Magnesium 2.0 mg/dl (1.6-2.3); Potassium 4.0 mmol/L (3.5-5.1); Sodium 133 mmol/L (135-145); eGFR > 60.00
[2025-10-28 07:33] VITALS: BP 99/66
[2025-10-28] MEDS: ALDACTONE 12.5 MG PO (08:09)
[2025-10-28] MEDS: TOPROL XL 50 MG PO (08:09)
[2025-10-28] MEDS: LOW STRENGTH ASPIRIN 81 MG PO (08:09)
[2025-10-28] MEDS: EFFIENT 10 MG PO (08:09)
[2025-10-28] MEDS: HEPARIN 5000 UNITS SC (08:11)
--- NOTE | 2025-10-28 08:57 | W.PN.CARDCBS ---
Addendum entered and electronically signed by Marie Cruz MD 10/28/25 22:21:
I saw and examined the patient.
The Watch Crystal Grinder's note was reviewed and I agree with the note.
Comment: Mr. Pond is doing okay this morning. orthopnea and PEREZ better, still with fatigue and not sleeping well.
Vital signs and lab work reviewed. Creatinine stable at 0.9. On exam patient is well-appearing, no acute distress, awake, alert and oriented x 3, very mildly elevated JVP, no carotid bruit, normal carotid upstrokes, CTAB, regular rate, normal S1
and S2, no murmurs, rubs or gallops, right radial access site with dressing in place which is clean, dry and intact without evidence of hematoma or bruit, warm extremities without significant edema.
Telemetry with frequent PVCs, NSVT, up to 30 beats. Other times he has AIVR as well.
Recommendations:
1. For inferolateral ST elevation [place] patient is status post 4 overlapping drug-eluting stents to 100% proximally occluded left circumflex and will be on DAPT daily baby aspirin and prasugrel. Medication copay affordable per CM. Low dose BB to be
taken at bedtime given concern for fatigue. LDL goal of less than 55 to be checked as an outpatient.
2. For acute decompensated systolic and diastolic heart failure with reduced ejection fraction secondary to ischemic cardiomyopathy, plan for discharging home on lasix 40mg daily with close monitoring of renal function, electrolytes. Plan to keep
K and mag over 4 and 2, respectively especially given ventricular ectopy. SGLt2i as outpatient.
3. Frequent ventricular ectopy and nonsustained VT in the setting of jeremiah-NV, BB allowing for significant improvement.
4. For ischemic cardiomyopathy, will work on optimizing GDMT. Given blood pressures are borderline, weve been limited. Cont current BB and aldactone dose. SGLt2i as outpatient.
5. Discussed importance of a heart healthy cardiac diet that is high in fiber and low in carbs to optimize long-term cardiovascular risk and pursuing outpatient cardiac rehab.
6. Very strongly emphasized importance of complete smoking cessation.
7. Echocardiogram reviewed by myself showing mild LV dysfunction with wall motions in the lateral, inferolateral and anterolateral goodman with EF estimated at 40 to 45%. No significant valvular abnormalities.
Discussed with patient, at bedside as well as nursing.
Marie Cruz MD, [facility], [facility]
Total time spent: 35 minutes
Original Note:
Today's Communication / Plan
-
Start PO lasix 40mg daily
BMP, Mg in 1 week
followup at [facility] in 2 weeks
home later today
Impression / Plan
-
PCP: None
CDY: Marie Cruz MD
55 y/o, strong FH premature CAD in multiple family members, active tobacco abuse- 1-2ppd x20y- no known PMH, does not see a PCP.
Developed acute onset SSCP while shoveling snow yesterday, radiating to LUE/back, persistent and unrelieved with rest, mild nausea but no other associated symptoms. He endorses intermittent CP over the last 2-3 days prior to admission, some at rest,
self limiting. He presented to ER where EKG showed inferolateral STEMI. Loaded with aspirin, ticagrelor and heparin and brought emergently to laboratory associate.
LHC- 100% prox LCx occlusion, s/p 4 overlapping SHANIKA
residual 80% prox RCA disease- small caliber, non dominant
LVEDP 35.
Transient bradycardia/asystole during the procedure requiring very brief CPR
Echo- nml LV Size, mildly decreased LVSF, EF 40-45%
lateral, anterolateral and inferolateral HK, mild AR, mild MR, no effusion
IMPRESSION:
Acute inferolateral STEMI, this is a threat to life
s/p prox LCx PCI w/4 overlapping SHANIKA, 10/25/25
Residual 80% prox RCA disease- medical management
New Ischemic Cardiomyopathy
Acute systolic HFrEF, 40-45%
HLD- new diagnosis
Active tobacco abuse, 1-2PPD x20y
Strong FH premature CAD
Obesity
PLAN:
Tele- NSR, brief AT 150s, no PVC/VT noted in last 24 hours
radial cath site stable
Peak troponin 258
echocardiogram noted- new cardiomyopathy with decreased EF 40-45%
mild orthopnea noted- lasix 40mg IV given yesterday- I/O neg 445ml- will start daily lasix 40mg po with repeat BMP, Mg early next week
Difficult to maximize GDMT- Soft BP- low 100s- and holding EMILY/ARB, to re-eval in outpt setting
Tolerating spironolactone 12.5mg/daily, metoprolol 50mg/daily
SGLT2 requires prior auth and will start that at outpt followup
DAPT w/asa, prasugrel- pt and understand importance of uninterrupted DAPT for 1 year post stenting
Lipid profile noted- high intensity statin therapy w/atorvastatin 80mg/d
Tobacco cessation is a must- discussed w/pt and he is in agreement- will provide nicoderm patches
Weight loss encouraged
Cardiac rehab
plan for outpt echo in 2-3 months, re eval cardiomyopathy
Recommended he find a park guard for medical management and followup
Home today
Followup at [facility] as scheduled
Progress Note - Tube Winder Hand
Subjective
Date of Service: October 28, 2025
Less tired today, still with occasional mild dyspnea after ambulating
walking in hallways without difficulty
denies cp/palps
cath site without pain
Objective
Labs:
10/28/25 03:47
10/28/25 03:47
Labs
Hgb 16.4 g/dL (13.0-18.0) 10/28/25 03:47
Hct 45.1 % (39.0-52.0) 10/28/25 03:47
Plt Count 224 10^3/uL (130-400) 10/28/25 03:47
PT 12.8 Sec (11.4-14.6) 10/25/25 14:23
INR 0.95 10/25/25 14:23
APTT 28.7 Sec (23.4-35.0) 10/25/25 14:23
Sodium 133 mmol/L (135-145) L 10/28/25 03:47
Potassium 4.0 mmol/L (3.5-5.1) 10/28/25 03:47
BUN 26 mg/dl (9-20) H 10/28/25 03:47
Creatinine 1.0 mg/dL (0.7-1.3) 10/28/25 03:47
Glucose 104 mg/dl (70-99) H 10/28/25 03:47
Troponins
10/25/25 10/25/25 10/25/25
14:23 18:11 23:15
Troponin I 0.274 H* 122.000 H* D Cancelled
10/26/25 10/26/25 10/26/25
00:38 01:00 05:53
Troponin I 258.000 H* D Cancelled 188.000 H* D
Vital Signs and I&O:
Vital Signs
Temp Pulse Resp BP Pulse Ox
98.3 F 78 16 99/66 97
10/28/25 07:32 10/28/25 08:09 10/28/25 07:32 10/28/25 08:09 10/28/25 07:32
Vital Signs
Temp Pulse Resp BP Pulse Ox
98.3 F 78 16 99/66 97
10/28/25 07:32 10/28/25 08:09 10/28/25 07:32 10/28/25 08:09 10/28/25 07:32
Intake & Output
10/26/25 10/27/25 10/28/25 10/29/25
06:59 06:59 06:59 06:59
Intake Total 240 / 240 480 / 480 480 / 480
Output Total 900 / 900 300 / 300 925 / 925
Balance -660 / -660 180 / 180 -445 / -445
Physical Exam
Physical Exam
AAOx3, MAEE 03/16
RRR S1 S2 no murmurs
CTA bilat, non labored
soft abd, + bs
right radial cath site with staged bruising, no ht/bleeding, non tender, palpable pulse
bilat extremities w/palpable distal pulses, no edema
--- NOTE | 2025-10-28 09:20 | PTCARENOTE ---
received patient up walking in [facility]. well. monitor shows NSR, VSSW. right radial [place], distal pulse palpable. patient is hoping to be discharged to home today.
[2025-10-28] MEDS: LASIX 40 MG PO (10:02)
--- NOTE | 2025-10-28 10:32 | W.DS.TRANS ---
DC Summary - [facility]
-
Discharge Instructions:
Discharge Diagnosis/Procedures STEMI, s/p angioplasty and stent x4 to Left
Circumflex artery
Diet Low Cholesterol
Activity No strenuous activity
Additional Activity NO strenuous activity for 2 weeks- NO heavy
lifting, NO snow shoveling
Driving Restrictions No driving for 24 hours
Blood Work CBC, BMP, Magnesium in 5 days- results to
[facility]
Other Services Cardiac Rehab
Instructions:
Stand-Alone Forms: DC Instructions- Cath/EP Lab
Changes to Home Medications: Yes
Discharge Medications:
DC Medications w/original date entered in [facility]
loratadine 10 mg tablet (Claritin) 10 mg PO DAILYPRN PRN allergies 10/25/25
aspirin 81 mg chewable tablet 81 mg PO DAILY #0 tabs 10/27/25
atorvastatin 80 mg tablet 80 mg PO QPM #30 tabs 10/27/25
nicotine 21 mg/24 hr daily transdermal patch 21 mg transdermal DAILY #28 ea 10/27/25
prasugrel HCl 10 mg tablet 10 mg PO DAILY #30 tabs 10/27/25
furosemide 40 mg tablet 40 mg PO DAILY #30 tabs 10/28/25
metoprolol succinate 50 mg tablet,extended release 24 hr 50 mg PO DAILY #30 tabs 10/28/25
spironolactone 25 mg tablet 12.5 mg (1/2 x 25 mg) PO DAILY #30 tabs 10/28/25
Home Medication Changes
ALL MEDS ARE NEW
Pending Results: No
--- NOTE | 2025-10-28 11:33 | PTCARENOTE ---
D/C instructions given to patient and , both verbalizes understanding. INT D/C'd, telemetry D/C'd, personal belongings packed and sent home with patient. D/C to home via wc accompanied by staff.
== END 2025-10-28 11:35 | disposition home or self-care (01) | DRG 321 ==
LOC: IVU 16:44
PROVIDERS: Emergency Medicine; Nurse Practitioner; ADMITTING PHYSICIAN Internal Medicine Interventional Cardiology; EMERGENCY PHYSICIAN Student in an Organized Health Care Education/Training Program
PROC: B240ZZ3 Ultrasonography of Single Coronary Artery, Intravascular (ICD-10-PCS; 2025-10-25)
PROC: 4A023N7 Measurement of Cardiac Sampling and Pressure, Left Heart, Percutaneous Approach (ICD-10-PCS; 2025-10-25)
PROC: 027037Z Dilation of Coronary Artery, One Artery with Four or More Drug-eluting Intraluminal Devices, Percutaneous Approach (ICD-10-PCS; 2025-10-25)
PROC: B2111ZZ Fluoroscopy of Multiple Coronary Arteries using Low Osmolar Contrast (ICD-10-PCS; 2025-10-25)
DX: I21.19 ST elevation (STEMI) myocardial infarction involving other coronary artery of inferior wall (principal); Z82.49 Family history of ischemic heart disease and other diseases of the circulatory system; F17.200 Nicotine dependence, unspecified, uncomplicated; I10 Essential (primary) hypertension
CPT/HCPCS: 80048; 80053; 80061; 83036; 83735; 84484; 85025; 85027; 85347; 85610; 85730; 92978; 93005; 93306; 93458; 99152; 99153; 99285; C1725; C1753; C1874; C9606; Q9950; Q9967

== ENCOUNTER 2025-11-11 10:02 | Outpatient (RCR) | payer OTHER, SELFPAY | END 2025-11-11 23:59 | disposition home or self-care (01) | LOC: CRHB 10:02 | PROVIDERS: ATTENDING PHYSICIAN Internal Medicine Interventional Cardiology | DX: I25.10 Atherosclerotic heart disease of native coronary artery without angina pectoris (principal); Z95.5 Presence of coronary angioplasty implant and graft; I25.2 Old myocardial infarction | CPT/HCPCS: G0422; G0423 ==